=== PATIENT | female | born 1990 ===

== ENCOUNTER 2020-06-08 08:48 | Day surgery (SDC) | payer OTHER ==
[~2020-06-08 08:48] MED LIST: DAILY VALUE1 EACH PO
[2020-06-08] MEDS ORDERED: MACROBID 100 M100 MG PO (14:04)
[2020-06-08] MEDS ORDERED: ULTRACET PO (14:05)
== END 2020-06-08 17:10 | disposition home or self-care (01) ==
LOC: CIR.AMB 08:48
PROVIDERS: ATTEND Obstetrics & Gynecology Gynecology
DX: N36.1 Urethral diverticulum (principal); Z20.828 Contact with and (suspected) exposure to other viral communicable diseases

== ENCOUNTER 2020-10-16 10:35 | Emergency (ER) | payer OTHER ==
[~2020-10-16] VITALS: Ht 152.4 cm; Wt 54.4 kg
[~2020-10-16 10:35] MED LIST changes: +MACROBID 100 M100 MG PO; +ULTRACET PO
== END 2020-10-16 18:53 | disposition home or self-care (01) ==
LOC: ER 10:35
DX: R00.2 Palpitations (principal)

== ENCOUNTER 2024-03-12 11:13 | Outpatient (CLI) | payer OTHER | END 2024-03-12 11:33 | disposition home or self-care (01) | LOC: NST 11:13 | PROVIDERS: ATTEND Obstetrics & Gynecology Maternal & Fetal Medicine | DX: Z34.83 Encounter for supervision of other normal pregnancy, third trimester (principal) ==

== ENCOUNTER 2024-03-20 11:45 | Inpatient (IN) | payer OTHER ==
[~2024-03-20] VITALS: Ht 154.9 cm; Wt 76.2 kg
[2024-03-25] VITALS (9 sets, daily range): BP systolic 107–135; BP diastolic 51–85
[2024-03-25] MEDS ORDERED: RINGERS SOLUTION,LACTATED 1,000 ML IV SCH (08:15)
[2024-03-25] MEDS ORDERED: OXYTOCIN 500 ML IV ONE (08:30)
[2024-03-25 08:58] LABS: HEMOGLOBIN 11.8 g/dL (12.0-15.00); MEAN CELL VOLUME 79.7 fL (80.00-100.00); MEAN CORPUSCULAR HEMOGLOBIN 26.9 pg (27.00-32.0); MEAN CORPUSCULAR HGB CONC 33.7 g/dl (32.0-36.0); PLATELET COUNT 218 K/uL (150-450); RED BLOOD COUNT 4.39 M/uL (4.00-6.00); RED CELL DISTRIBUTION WIDTH 14.7 % (11.5-14.5)
[2024-03-25] MEDS ORDERED: METOPROLOL SUCC25 MG PO (09:01)
[2024-03-25 09:27] LABS: INR < 0.93; PARTIAL THROMBOPLASTIN TIME 25.1 SECONDS (22.0-34.0)
[2024-03-25 09:55] LABS: ALBUMIN 2.5 gm/dL (3.4-5.0); BILIRUBIN TOTAL 0.32 mg/dL (0.3-1.2); CALCIUM 9.6 mg/dL (8.5-10.1); CREATININE SERUM 0.58 mg/dL (0.55-1.02); GFR 119.72; GLOBULINA 3.7 G/DL (2.4-3.5); POTASSIUM 4.19 mEq/L (3.5-5.1); TOTAL PROTEIN 6.2 gm/dL (6.4-8.2)
[2024-03-25] MEDS ORDERED: MORPHINE SULFATE 4 MG/ML VIAL IV ONE (14:45)
[2024-03-25] MEDS ORDERED: ERYTHROMYCIN BASE OPHT 1GM EACH TUBE OP ONE (17:15)
[2024-03-25] MEDS ORDERED: IBUprofen 400 MG TABLET PO PRN (17:45)
[2024-03-25] MEDS ORDERED: OXYTOCIN 1,000 ML IV SCH (17:45)
[2024-03-25] MEDS ORDERED: CHLORHEXIDINE GLUCONATE 120 ML BOTTLE TOP ONE (17:45)
[2024-03-26 01:29] VITALS: BP 112/76
[2024-03-26 07:02] LABS: HEMATOCRIT 25.9 % (36.0-45.00); MEAN CELL VOLUME 80.1 fL (80.00-100.00); MEAN CORPUSCULAR HGB CONC 34.2 g/dl (32.0-36.0); PLATELET COUNT 207 K/uL (150-450); RED BLOOD COUNT 3.24 M/uL (4.00-6.00); RED CELL DISTRIBUTION WIDTH 14.7 % (11.5-14.5)
[2024-03-26 07:19] LABS: HEMOGLOBIN 8.9 g/dL (12.0-15.00); MEAN CORPUSCULAR HEMOGLOBIN 27.4 pg (27.00-32.0)
[2024-03-26 08:56] VITALS: BP 124/64
[2024-03-26 13:33] VITALS: BP 112/65
[2024-03-26 16:15] VITALS: BP 106/76
[2024-03-27 00:55] VITALS: BP 100/65
[2024-03-27 05:16] VITALS: BP 108/75
[2024-03-27 07:11] LABS: HEMATOCRIT 27.8 % (36.0-45.00); HEMOGLOBIN 9.1 g/dL (12.0-15.00); MEAN CELL VOLUME 80.3 fL (80.00-100.00); MEAN CORPUSCULAR HEMOGLOBIN 26.4 pg (27.00-32.0); MEAN CORPUSCULAR HGB CONC 32.8 g/dl (32.0-36.0); PLATELET COUNT 240 K/uL (150-450); RED BLOOD COUNT 3.46 M/uL (4.00-6.00); RED CELL DISTRIBUTION WIDTH 14.5 % (11.5-14.5)
[2024-03-27 10:00] VITALS: BP 112/76
== END 2024-03-27 13:00 | disposition home or self-care (01) | DRG 807 ==
LOC: LDR 03-25 08:06 → OB/GYN 03-25 18:18
PROVIDERS: Obstetrics & Gynecology; ADMIT Obstetrics & Gynecology; ATTEND Obstetrics & Gynecology
PROC: 10E0XZZ Delivery of Products of Conception, External Approach (ICD-10-PCS; principal; 2024-03-25)
PROC: 0W8NXZZ Division of Female Perineum, External Approach (ICD-10-PCS; 2024-03-25)
PROC: 4A1HXCZ Monitoring of Products of Conception, Cardiac Rate, External Approach (ICD-10-PCS; 2024-03-25)
DX: O70.1 Second degree perineal laceration during delivery (principal); Z37.0 Single live birth; Z3A.39 39 weeks gestation of pregnancy; Z20.822 Contact with and (suspected) exposure to COVID-19